=== PATIENT | female | born 1980 | race Asian ===

== ENCOUNTER → 2017-09-14 | Outpatient (CLI) | payer BC ==
[~2017-09-14] MED LIST: ACHYD1T PO; IBP800T PO
--- NOTE | 2017-09-14 11:09 | Diagnostic Imaging Report ---
PROCEDURE: US Thyroid. TECHNIQUE: Multiple real-time grayscale images were obtained of the thyroid in various projections. INDICATION: Followup right thyroid nodule. COMPARISON: 08/14/2016 FINDINGS: The right thyroid lobe is 6.5 x 2 x 2.5 CM. The left lobe is 5.3 x 1.2 x 1.3 CM. There is a 4.9 x 1.9 x 2.9 cm complex lesion, largely cystic with a solid nodule seen. This is measuring 1.5 x 0.7 x 0.8 CM. The solid component appears slightly more confluent on this exam. The left lobe demonstrate tiny cystic lesions up to 4 mm in size of questionable significance. IMPRESSION: Partially cystic mass with a solid nodule seen in the left thyroid lobe with internal solid component. There is minimal overall enlargement compared to the previous exam. Ultrasound-guided biopsy of the solid component is suggested. Report was faxed to office of Dr. Garza by zoila at 11:10 am. Dictated by: Dictated on workstation # [id number]
== END ==
LOC: RAD 09:47
PROVIDERS: ATTEND Otolaryngology Otolaryngology/Facial Plastic Surgery
DX: E04.1 Nontoxic single thyroid nodule (principal)
CPT/HCPCS: 36415; 76536; 84436; 84443

== ENCOUNTER 2018-10-21 11:00 | Outpatient (CLI) | payer BC ==
[~2018-10-21] VITALS: Ht 160 cm; Wt 54.0 kg
[2018-10-21 11:25] VITALS: BP 113/56
[2018-10-21 11:32] LABS: BASOPHILS % (AUTO) 1 % (0-10); EOSINOPHILS # (AUTO) 0.1 10^3/uL (0.0-0.3); EOSINOPHILS % (AUTO) 1 % (0-10); HEMATOCRIT 38 % (35-52); HEMOGLOBIN 12.5 G/DL (11.5-16.0); LYMPHOCYTES # (AUTO) 2.2 X 10^3 (1.0-4.0); LYMPHOCYTES % (AUTO) 39 % (12-44); MEAN CORPUSCULAR HEMOGLOBIN 30 PG (25-34); MEAN CORPUSCULAR HGB CONC 33 G/DL (32-36); MEAN CORPUSCULAR VOLUME 91 FL (80-99); MEAN PLATELET VOLUME 9.6 FL (7.4-10.4); MONOCYTES # (AUTO) 0.5 X 10^3 (0.0-1.0); MONOCYTES % (AUTO) 10 % (0-12); NEUTROPHILS # (AUTO) 2.7 X 10^3 (1.8-7.8); NEUTROPHILS % (AUTO) 50 % (42-75); PLATELET COUNT 255 10^3/uL (130-400); RED BLOOD COUNT 4.18 10^6/uL (4.35-5.85); RED CELL DISTRIBUTION WIDTH 13.1 % (10.0-14.5); WHITE BLOOD COUNT 5.5 10^3/uL (4.3-11.0)
[2018-10-23] MEDS ORDERED: OXYC-199 PO (13:21)
[2018-10-23] MEDS ORDERED: IBUP-1780 PO (13:21)
== END 2018-10-21 11:23 | disposition home or self-care (01) ==
LOC: PREOP 11:00
PROVIDERS: ATTEND Obstetrics & Gynecology
DX: Z01.812 Encounter for preprocedural laboratory examination (principal); Z11.2 Encounter for screening for other bacterial diseases; R19.09 Other intra-abdominal and pelvic swelling, mass and lump; D64.9 Anemia, unspecified
CPT/HCPCS: 36415; 84703; 85025; 87081

== ENCOUNTER 2018-10-23 11:20 | Day surgery (SDC) | payer BC ==
[~2018-10-23] VITALS: Ht 160 cm; Wt 54.0 kg
[2018-10-23] MEDS ORDERED: LACTATED RINGERS 1,000 ML IV PRN (11:23)
[2018-10-23] MEDS ORDERED: ceFAZolin INJECTION 1,000 MG in NS (IVPB) 50 ML IV ONE (11:30)
[2018-10-23 11:38] VITALS: BP 122/92
[2018-10-23] MEDS ORDERED: proPOfol 200 MG/20 ML (DIPRIVAN) VIAL IV ONE (12:06)
[2018-10-23] MEDS ORDERED: SEVOFLURANE (ULTANE) 15 ML INHAL SOLN ONE ×3 (12:06→13:47)
[2018-10-23] MEDS ORDERED: fentaNYL INJECTION 100 MCG/2 ML AMP ONE (12:06)
[2018-10-23] MEDS ORDERED: DEXAMETHASONE 10 MG/ML (DECADRON) 1 ML VIAL ONE (12:06)
[2018-10-23] MEDS ORDERED: LIDOCAINE PF 2% 5 ML (XYLOCAINE) VIAL ONE (12:06)
[2018-10-23] MEDS ORDERED: ONDANSETRON 4 MG/2 ML (SDV) Z0FRAN ONE (12:06)
[2018-10-23] MEDS ORDERED: MIDAZOLAM 2 MG/2 ML (VERSED) VIAL ONE (12:07)
--- NOTE | 2018-10-23 13:18 | Progress Note-Pre Operative ---
Pre-Operative Progress Note H&P Reviewed The H&P was reviewed, patient examined and no changes noted. Date Seen by Provider: Oct 23, 2018 Time Seen by Provider: 13:17 Date H&P Reviewed: Oct 23, 2018 Time H&P Reviewed: 13:18 Pre-Operative Diagnosis: Dysfunctional uterine bleeding/intrauterine mass GINI ANDERSON MD Oct 23, 2018 13:18
[2018-10-23] MEDS ORDERED: D5 LR IV SOLUTION 1,000 ML IV SCH (13:19)
--- NOTE | 2018-10-23 13:19 | Progress Note-Post Operative ---
Post-Operative Progess Note Surgeon (s)/Acid Bleacher (s) Surgeon GINI ANDERSON MD Acid Bleacher: None Pre-Operative Diagnosis Dysfunctional uterine bleeding/intrauterine mass Post-Operative Diagnosis Same with pathology pending Procedure & Operative Findings Date of Procedure 10/23/18 Procedure Performed/Findings Hysteroscopy with directed biopsy and D&C Anesthesia Type GETA Estimated Blood Loss Estimated blood loss (mL): Minimal Specimens/Packing Specimens Removed Endometrial direct and biopsy and endometrial curettings GINI ANDERSON MD Oct 23, 2018 13:19
[2018-10-23] MEDS ORDERED: OXYC-199 PO (13:21)
[2018-10-23] MEDS ORDERED: IBUP-1780 PO (13:21)
--- NOTE | 2018-10-23 13:23 | Discharge Instructions ---
Discharge Instructions Discharge Medications New, Converted or Re-Newed RX: RX on Chart Patient Instructions Patient Instructions: As directed Return to The Hospital For: As directed Activity & Diet Discharge Diet: No Restrictions Activity as Tolerated: No Orders-Post D/C & Referrals Follow Up Appt: Call to make follow up appt. for patient in 2 weeks. Activity: Rest for 24 hours, than as tolerated. Please call in RX to patient pharmacy. Diet: As tolerated-Clear Liquids only if nauseated. May shower or tub bathe as desired. No driving for 24 hours, no alcoholic beverages for 24 hours, and nothing per vagina (no tampons, douching, or intercourse) for 2 weeks. Patient to return to the clinic as soon as possible for: Temperature greater than 101F, Severe Pain, Foul discharge from incision or vagina, Excessive Bleeding (more than a period). GINI ANDERSON MD Oct 23, 2018 13:23
[2018-10-23] MEDS ORDERED: ONDANSETRON 4 MG/2 ML (SDV) Z0FRAN IVP PRN ×2 (13:30→14:15)
[2018-10-23] MEDS ORDERED: KETOROLAC 30 MG/ML VIAL IVP ONE (13:30)
[2018-10-23] MEDS ORDERED: PROMETHAZINE INJ 25 MG/ML (PHENERGAN) AMP IM ONE (13:30)
[2018-10-23] MEDS ORDERED: MEPERIDINE (DEMEROL) INJ 100 MG/ML IM ONE (13:30)
[2018-10-23] MEDS ORDERED: oxyCODONE/APAP 5/325MG (PERCOCET 5) TABLET PO PRN (13:30)
[2018-10-23] MEDS ORDERED: ESTROGENS CONJ IV 25 MG/5 ML (PREMARIN) VIAL IVP ONE (13:30)
[2018-10-23] MEDS ORDERED: KETOROLAC 30 MG/ML VIAL ONE (13:54)
[2018-10-23] MEDS ORDERED: ESTROGENS CONJ IV 25 MG/5 ML (PREMARIN) VIAL ONE (14:06)
[2018-10-23] MEDS ORDERED: WATER (STERILE) FOR INJECTION 10 ML ONE (14:07)
[2018-10-23] MEDS ORDERED: fentaNYL INJECTION 100 MCG/2 ML AMP IVP ONE (14:15)
[2018-10-23] MEDS ORDERED: morphine INJ 10 MG/ML 1ML (SYR OR VIAL) IVP ONE (14:15)
[2018-10-23] MEDS ORDERED: MEPERIDINE (DEMEROL) INJ 50 MG/ML IVP ONE (14:15)
[2018-10-23 14:45] VITALS: BP 121/77
--- NOTE | 2018-10-23 14:57 | OPERATIVE REPORT ---
DATE OF SERVICE: 10/23/2018 SURGEON: Gini Hernandez MD. PREOPERATIVE DIAGNOSES: Dysfunctional uterine bleeding and intrauterine mass. POSTOPERATIVE DIAGNOSES: Dysfunctional uterine bleeding, intrauterine mass, likely intrauterine polyps with pathology pending. OPERATIVE PROCEDURE: Hysteroscopy with directed biopsies and fractional D and C. OPERATIVE DESCRIPTION: With the patient in the supine position under satisfactory general anesthesia, she was repositioned in dorsal lith[facility] and prepped and draped in the usual fashion for vaginal surgery. Weighted speculum placed in posterior fornix of vagina, cervix exposed and grasped anteriorly with single tooth tenaculum. Uterus was sounded to 9.5 cm with uterine sound. Cervix was then serially dilated with Jose A dilators to a #20 Jose A and then a #9 Hegar dilator was the last step in dilation. The hysteroscope was introduced and using LR as a distending medium, the endometrial cavity was examined. There were several small polypoid-appearing lesions emanating from the posterior surface of the uterus. There was one large lesion emanating from the right anterior lateral surface of the interior cavity of the uterus. Both tubal ostia were normal in appearance. The anterior uterine wall polypoid mass was resected by clamping across its base and three bites and then removing the polyp with the last bite and sending that to pathology separately under appropriate label. One of the posterior uterine wall lesions were then biopsied off under direct vision and sent to pathology, labeled appropriately as well. The endometrial cavity was then sharply curettaged in all 4 quadrants to a good uterine cry removing a fairly large amount of endometrial tissue with likely some polypoid fragments contained therein as well. The endometrial cavity was then reexamined with the hysteroscope. There was no bleeding. There was no remaining abnormal pathology in the endometrial cavity as the scope was extracted through the cervix. The cervix was examined and it did appear that there were a number of endocervical polyps. Fractional curettage was then completed by curettage in the endocervical canal first with a box curette and then with a small sharp curette. That tissue was sent to pathology, labeled as endocervical curettage as well. The tenaculum was now removed from the cervix. There was some bleeding from both puncture sites. This was touched with silver nitrate to effect hemostasis. Hemostasis assured and no significant bleeding from the cervical os. The procedure was terminated. Sponge and needle counts were correct on completion of the procedure. Estimated blood loss was minimal. A total of 750 mL of distending medium was used and approximately 650 to 700 of that was recovered. There was some spillage on the floor as well. The patient tolerated the procedure well and was uneventfully awakened from her general anesthesia and transferred to recovery in stable condition with plans for discharge home PAR. Job ID: [id number] DocumentID: [id number] Dictated Date: 10/23/2018 13:57:07 Earthmoving Labourer Date: 10/23/2018 14:56:44 Dictated By: GINI HERNANDEZ MD
--- OUTSIDE RECORDS SUMMARY | 2018-10-23 15:14 | XMS REPORT | Clinical Summary ---
Author Author [facility] Organization [facility] Address Unknown Phone Unavailable Care Team Providers Care Side Laster Tack Name Role Phone No Pcp, Na PCP Unavailable Source Comments Some departments are not documenting in the electronic medical record. If you do not see the information that you expected, contact Release of Information in the Health Information Management department at [phone] for further assistance in locating additional records.[facility] Allergies No Known Allergies Medications End Date Status Medication Sig Dispensed Refills Start Date Active vitamins, multiple tablet Take 1 tablet 0 by mouth daily. Active calcium carbonate/vitamin Take 1 tablet 0 D-3 (OSCAL-500+D) 1250 by mouth mg/200 unit tablet daily. Calcium Carb 1250mg delivers 500mg elemental Ca Active COLLAGEN MISC Use as 0 directed. Active biotin 1 mg cap Take 1 0 capsule by mouth daily. Active Herbal Drugs tab Take by 0 mouth. Mangastene inflammation complex Active loratadine (CLARITIN) 10 Take 1 mg by 0 mg tablet mouth daily as needed. Active fluticasone (FLONASE) 50 Apply 1-2 0 mcg/actuation nasal spray sprays to each nostril as directed daily as needed. Shake bottle gently before using. Active Problems Problem Noted Date Neck tightness 08/08/2018 Thyroid mass 08/08/2018 Encounters Care Team Description Date Type Specialty Sony Puente MD Surgery 08/15/2018 Telephone Otolaryngology Waddell, SMITH Ortega 08/08/2018 Anesthesia Event Sony Puente MD 08/08/2018 PAC Office Anesthesiology Visit Sony Puente MD 08/08/2018 Hospital Radiology Encounter Sony Puente MD Neck tightness; Thyroid mass 08/08/2018 Office Visit Otolaryngology Sony Puente MD 08/08/2018 Hospital Radiology Encounter Sony Puente MD 08/08/2018 Hospital Lab Encounter Sony Puente MD Multiple thyroid nodules (Primary Dx) 08/08/2018 Orders Only Otolaryngology Sony Puente MD Thyroid mass (Primary Dx) 08/08/2018 Prep for Case Otolaryngology Sony Puente MD Navigation Assessment 07/30/2018 Telephone Oncology from Last 3 Months Family History Medical History Relation Name Comments Asthma Sister Relation Name Status Comments Father Mother Alive Sister Alive Social History Date Tobacco Use Types Packs/Day Years Used Never Smoker Smokeless Tobacco: Never Used Alcohol Use Drinks/Week oz/Week Comments No Sex Assigned at Date Recorded Not on file Industry Job Start Date Occupation Not on file Not on file Not on file Travel End Travel History Travel Start No recent travel history available. Last Filed Vital Signs Time Taken Vital Sign Reading 08/08/2018 1:36 PM BALLISTICS EXPERT Blood Pressure 111/72 08/08/2018 1:36 PM BALLISTICS EXPERT Pulse 91 08/08/2018 1:36 PM BALLISTICS EXPERT Temperature 36.6 C (97.9 F) - Respiratory Rate - 08/08/2018 1:36 PM BALLISTICS EXPERT Oxygen Saturation 100% - Inhaled Oxygen - Concentration 08/08/2018 1:36 PM BALLISTICS EXPERT Weight 51.3 kg (113 lb) 08/08/2018 1:36 PM BALLISTICS EXPERT Height 160 cm (5' 3") 08/08/2018 1:36 PM BALLISTICS EXPERT Body Mass Index 20.02 Plan of Treatment Health Maintenance Due Date Last Done Comments PHYSICAL (COMPREHENSIVE) 1985 EXAM HIV SCREENING 1993 DTAP/TDAP VACCINES ( - 1996 Tdap) CERVICAL CANCER SCREENING 2008 BREAST CANCER SCREENING 2018 INFLUENZA VACCINE 05/01/2018 Procedures Comments Procedure Name Priority Date/Time Associated Diagnosis CHEST 2 VIEWS Routine 08/08/2018 Multiple thyroid nodules 1:15 PM BALLISTICS EXPERT US THYROID Routine 08/08/2018 Multiple thyroid nodules 10:28 AM BALLISTICS EXPERT 25-OH VITAMIN D (D2 + D3) Routine 08/08/2018 Multiple thyroid nodules 8:27 AM BALLISTICS EXPERT Pre-procedure lab exam THYROID STIMULATING Routine 08/08/2018 Multiple thyroid nodules HORMONE-TSH 8:27 AM BALLISTICS EXPERT COMPREHENSIVE METABOLIC Routine 08/08/2018 Pre-procedure lab exam PANEL 8:27 AM BALLISTICS EXPERT CBC AND DIFF Routine 08/08/2018 Pre-procedure lab exam 8:27 AM BALLISTICS EXPERT from Last 3 Months Results * CHEST 2 VIEWS (08/08/2018 1:15 PM BALLISTICS EXPERT) Impressions Performed At No acute cardiopulmonary abnormality. [facility] Finalized by Jose Alves M.D. on 08/08/2018 1:28 PM. Dictated by Jose Alves M.D. on 08/08/2018 1:27 PM. Narrative Performed At 2 views of the chest [facility] Clinical history: Thyroid nodules. Findings: Comparison chest film: None available. The heart and pulmonary vasculature are within normal limits. There is mild indentation of the right upper trachea which may be due to the patient's known large right thyroid nodule. There are no consolidating infiltrates, effusions or pneumothoraces identified. Procedure Note Interface, Radiant Results - 08/08/2018 1:31 PM BALLISTICS EXPERT 2 views of the chest Clinical history: Thyroid nodules. Findings: Comparison chest film: None available. The heart and pulmonary vasculature are within normal limits. There is mild indentation of the right upper trachea which may be due to the patient's known large right thyroid nodule. There are no consolidating infiltrates, effusions or pneumothoraces identified. IMPRESSION No acute cardiopulmonary abnormality. Finalized by Jose Alves M.D. on 08/08/2018 1:28 PM. Dictated by Jose Alves M.D. on 08/08/2018 1:27 PM. Performing Organization Address City/State/Zipcode Phone Number [facility] * US THYROID (08/08/2018 10:28 AM BALLISTICS EXPERT) Impressions Performed At 1.Large complex cystic mass in right lobe of thyroid, not significantly [facility] changed from previous studies. This finding has been previously biopsied with benign results. Continued periodic follow-up is recommended, with repeat study in 12/18 months. 2.Small nodule in left lobe of thyroid, most compatible with follicular nodule. 3.Normal sized likely reactive cervical lymph nodes. Finalized by Pham Rosario M.D. on 08/08/2018 12:47 PM. Dictated by Pham Rosario M.D. on 08/08/2018 12:36 PM. Narrative Performed At Thyroid ultrasound. [facility] Clinical Indication: Left thyroid nodules. Technique: Multiple real-time grayscale sonographic images were obtained through the thyroid. Findings: Comparison is to outside study dated September 14, 2017 and other studies dating back to October 30, 2013. The right lobe of the thyroid measures 5.4 x 2.4 x 3.3 cm. There is a large complex cystic mass in the mid right lobe of the thyroid. Layering fluid/ debris is suspected. It measures 3.8 x 2.4 x 3.1 cm. This compares to 4.9 x 1.9 x 2.9 cm in August 2017 and 3.5 x 1.2 x 2.2 cm in 2013. It has apparently been previously biopsied with findings of benign thyroid nodule with cystic degeneration. Hyperechoic soft tissue nodularity with suggestion of blood flow is noted, though spectral doppler was not performed. Elongated, likely reactive lymph nodes are seen in the right superior neck. These measure 2.8 x 0.3 x 1.0 cm and 2.4 x 0.4 x 1.3 cm. The left lobe of the thyroid measures 5.1 x 1.1 x 1.8 cm. Small isoechoic nodule with a hypoechoic rim is visualized measuring 0.4 x 0.2 x 0.3 cm, previously measuring 0.4 x 0.3 x 0.3 cm. Normal sized indeterminate, though likely reactive lymph nodes are seen in the left neck, the largest measuring 0.9 x 0.3 x 0.7 cm. The isthmus measures 0.2 cm in AP diameter. Reactive lymph node in the submental region measures 0.9 x 0.5 x 0.8 cm. Procedure Note Interface, Radiant Results - 08/08/2018 12:50 PM BALLISTICS EXPERT Thyroid ultrasound. Clinical Indication: Left thyroid nodules. Technique: Multiple real-time grayscale sonographic images were obtained through the thyroid. Findings: Comparison is to outside study dated September 14, 2017 and other studies dating back to October 30, 2013. The right lobe of the thyroid measures 5.4 x 2.4 x 3.3 cm. There is a large complex cystic mass in the mid right lobe of the thyroid. Layering fluid/debris is suspected. It measures 3.8 x 2.4 x 3.1 cm. This compares to 4.9 x 1.9 x 2.9 cm in August 2017 and 3.5 x 1.2 x 2.2 cm in 2013. It has apparently been previously biopsied with findings of benign thyroid nodule with cystic degeneration. Hyperechoic soft tissue nodularity with suggestion of blood flow is noted, though spectral doppler was not performed. Elongated, likely reactive lymph nodes are seen in the right superior neck. These measure 2.8 x 0.3 x 1.0 cm and 2.4 x 0.4 x 1.3 cm. The left lobe of the thyroid measures 5.1 x 1.1 x 1.8 cm. Small isoechoic nodule with a hypoechoic rim is visualized measuring 0.4 x 0.2 x 0.3 cm, previously measuring 0.4 x 0.3 x 0.3 cm. Normal sized indeterminate, though likely reactive lymph nodes are seen in the left neck, the largest measuring 0.9 x 0.3 x 0.7 cm. The isthmus measures 0.2 cm in AP diameter. Reactive lymph node in the submental region measures 0.9 x 0.5 x 0.8 cm. IMPRESSION 1. Large complex cystic mass in right lobe of thyroid, not significantly changed from previous studies. This finding has been previously biopsied with benign results. Continued periodic follow-up is recommended, with repeat study in 12/18 months. 2. Small nodule in left lobe of thyroid, most compatible with follicular nodule. 3. Normal sized likely reactive cervical lymph nodes. Finalized by Pham Rosario M.D. on 08/08/2018 12:47 PM. Dictated by Pham Rosario M.D. on 08/08/2018 12:36 PM. Performing Organization Address City/State/Zipcode Phone Number RAD RESULTS * 25-OH VITAMIN D (D2 + D3) (08/08/2018 8:27 AM BALLISTICS EXPERT) Vitamin D(25-OH)Total 57.3 30 - 80 NG/ML [facility] Specimen Blood Performing Organization Address City/[facility]/Zipcode Phone Number [facility] [address] [place] [address] * CBC AND DIFF (08/08/2018 8:27 AM BALLISTICS EXPERT) White Blood Cells 6.2 4.5 - 11.0 K/UL [facility] RBC 4.41 4.0 - 5.0 M/UL [facility] Hemoglobin 13.6 12.0 - 15.0 GM/DL [facility] Hematocrit 41.0 36 - 45 % [facility] MCV 93.0 80 - 100 FL [facility] MCH 30.8 26 - 34 PG [facility] MCHC 33.1 32.0 - 36.0 G/DL [facility] RDW 13.7 11 - 15 % [facility] Platelet Count 273 150 - 400 K/UL [facility] MPV 7.6 7 - 11 FL [facility] Neutrophils 64 41 - 77 % [facility] Lymphocytes 27 24 - 44 % [facility] Monocytes 7 4 - 12 % [facility] Eosinophils 1 0 - 5 % [facility] Basophils 1 0 - 2 % [facility] Absolute Neutrophil Count 3.90 1.8 - 7.0 K/UL [facility] Absolute Lymph Count 1.70 1.0 - 4.8 K/UL [facility] Absolute Monocyte Count 0.40 0 - 0.80 K/UL [facility] Absolute Eosinophil Count 0.10 0 - 0.45 K/UL [facility] Absolute Basophil Count 0.00 0 - 0.20 K/UL [facility] Specimen Blood Performing Organization Address City/[facility]/Zipcode Phone Number [facility] [address] [place] [address] * THYROID STIMULATING HORMONE-TSH (08/08/2018 8:27 AM BALLISTICS EXPERT) TSH 0.730 0.35 - 5.00 MCU/ML [facility] Specimen Blood Performing Organization Address [facility] Phone Number [facility] [address] [place] [address] * COMPREHENSIVE METABOLIC PANEL (08/08/2018 8:27 AM BALLISTICS EXPERT) Sodium 136 (L) 137 - 147 MMOL/L [facility] Potassium 4.3 3.5 - 5.1 MMOL/L [facility] Chloride 103 98 - 110 MMOL/L [facility] Glucose 171 (H) 70 - 100 MG/DL [facility] Blood Urea Nitrogen 13 7 - 25 MG/DL [facility] Creatinine 0.77 0.4 - 1.00 MG/DL [facility] Calcium 9.5 8.5 - 10.6 MG/DL [facility] Total Protein 7.7 6.0 - 8.0 G/DL [facility] Total Bilirubin 0.6 0.3 - 1.2 MG/DL [facility] Albumin 4.3 3.5 - 5.0 G/DL [facility] Alk Phosphatase 55 25 - 110 U/L [facility] AST (SGOT) 18 7 - 40 U/L [facility] CO2 26 21 - 30 MMOL/L [facility] ALT (SGPT) 12 7 - 56 U/L [facility] Anion Gap 7 3 - 12 [facility] eGFR Non >60 >60 mL/min [facility] Comment: The eGFR is not validated for use in drug dosing adjustments.Continue to use estimated creatinine clearance per dosing reference text.Please contact the Clinical Pharmacist for questions. eGFR >60 >60 mL/min [facility] Comment: The eGFR is not validated for use in drug dosing adjustments.Continue to use estimated creatinine clearance per dosing reference text.Please contact the Clinical Pharmacist for questions. Specimen Blood Performing Organization Address City/State/Zipcode Phone Number [facility] [address] [place] [address] from Last 3 Months Insurance Payer Benefit Subscriber ID Type Phone Address Plan / Group [facility] xxxxxxxxxxxx [facility] [address] (Home) [place] [address] Advance Directives Patient has advance care planning documents on file. For more information, please contact: [facility] [address] [place] [address]
--- OUTSIDE RECORDS SUMMARY | 2018-10-23 15:14 | XMS REPORT | Encounter Summary ---
Author Author [facility] Organization [facility] Address Unknown Phone Unavailable Care Team Providers Care Social Service Liaison Name Role Phone No Pcp, Na PCP Unavailable Encounter Details Care Team Description Date Type Department Sony Puente MD [address] [facility] [address] [place] [address] 08/08/2018 Hospital [facility] Radiology [address] [facility] MED OFFICE [address] [place] [address] Social History Date Tobacco Use Types Packs/Day Years Used Never Smoker Smokeless Tobacco: Never Used Alcohol Use Drinks/Week oz/Week Comments No Sex Assigned at Date Recorded Not on file Industry Job Start Date Occupation Not on file Not on file Not on file Travel End Travel History Travel Start No recent travel history available. as of this encounter Medications at Time of Discharge Start Date End Date Medication Sig Dispensed Refills biotin 1 mg cap Take 1 0 capsule by mouth daily. calcium carbonate/vitamin Take 1 tablet 0 D-3 (OSCAL-500+D) 1250 by mouth mg/200 unit tablet daily. Calcium Carb 1250mg delivers 500mg elemental Ca COLLAGEN MISC Use as 0 directed. fluticasone (FLONASE) 50 Apply 1-2 0 mcg/actuation nasal spray sprays to each nostril as directed daily as needed. Shake bottle gently before using. Herbal Drugs tab Take by 0 mouth. Mangastene inflammation complex loratadine (CLARITIN) 10 Take 1 mg by 0 mg tablet mouth daily as needed. vitamins, multiple tablet Take 1 tablet 0 by mouth daily. as of this encounter Plan of Treatment Not on fileas of this encounter Procedures Comments Procedure Name Priority Date/Time Associated Diagnosis CHEST 2 VIEWS Routine 08/08/2018 Multiple thyroid nodules 1:15 PM SENIOR QUALITY CONTROL INSPECTOR in this encounter Results * CHEST 2 VIEWS (08/08/2018 1:15 PM SENIOR QUALITY CONTROL INSPECTOR) Impressions Performed At No acute cardiopulmonary abnormality. [...] Interface, Radiant Results - 08/08/2018 1:31 PM SENIOR QUALITY CONTROL INSPECTOR 2 views of the chest Clinical history: Thyroid nodules. Findings: Comparison chest film: None available. The heart and pulmonary vasculature are within normal limits. There is mild indentation of the right upper trachea which may be due to the patient's known large right thyroid nodule. There are no consolidating infiltrates, effusions or pneumothoraces identified. IMPRESSION No acute cardiopulmonary abnormality. Finalized by Jose lAves M.D. on 08/08/2018 1:28 PM. Dictated by Jose Alves M.D. on 08/08/2018 1:27 PM. Performing Organization Address City/State/Zipcode Phone Number [facility] RES[facility] in this encounter Visit Diagnoses Diagnosis Multiple thyroid nodules Nontoxic multinodular goiter in this encounter
--- OUTSIDE RECORDS SUMMARY | 2018-10-23 15:14 | XMS REPORT | Encounter Summary ---
Author Author [facility] Organization [facility] Address Unknown Phone Unavailable Care Team Providers Care Forging Press Lever Tender Name Role Phone No Pcp, Na PCP Unavailable Encounter Details Care Team Description Date Type Department Sony Puente MD [address] [facility] [address] [place] [address] Multiple thyroid nodules (Primary Dx) 08/08/2018 Orders Only [facility] Phys[facility] - [facility] [address] [place] [address] Social History Date Tobacco Use Types Packs/Day Years Used Never Smoker Smokeless Tobacco: Never Used Alcohol Use Drinks/Week oz/Week Comments No Sex Assigned at Date Recorded Not on file Industry Job Start Date Occupation Not on file Not on file Not on file Travel End Travel History Travel Start No recent travel history available. as of this encounter Plan of Treatment Not on fileas of this encounter Results * CHEST 2 VIEWS (08/08/2018 1:15 PM BOX HINGE AND LOCK ATTACHER) Impressions Performed At No acute cardiopulmonary abnormality. [...] Interface, Radiant Results - 08/08/2018 1:31 PM BOX HINGE AND LOCK ATTACHER 2 views of the chest Clinical history: [...] encounter Visit Diagnoses Diagnosis Multiple thyroid nodules - Primary Nontoxic multinodular goiter in this encounter
--- OUTSIDE RECORDS SUMMARY | 2018-10-23 15:14 | XMS REPORT | Encounter Summary ---
Author Author [facility] Organization [facility] Address Unknown Phone Unavailable Care Team Providers Care Manager Outreach Name Role Phone No Pcp, Na PCP Unavailable Encounter Details Care Team Description Date Type Department Olvin Reina MD [address] [place] [address] 09/18/2018 Anesthesia [place] Operating Room Event [address] [place] [address] Anesthesia Record Responsible Anesthesiologist Anesthesia Start Time Anesthesia Stop Time Procedure Name THYROID LOBECTOMY TOTAL UNILATERAL (Right ) No events on file. Meds * No agents on file. * No blood administrations on file. No LDAs on file. in this encounter Social History Date Tobacco Use Types Packs/Day [...] Treatment Not on fileas of this encounter Visit Diagnoses Not on filein this encounter
--- OUTSIDE RECORDS SUMMARY | 2018-10-23 15:14 | XMS REPORT | Encounter Summary ---
Author Author [facility] Organization [facility] Address Unknown Phone Unavailable Care Team Providers Care Grounds Maintenance Worker Name Role Phone No Pcp, Na PCP Unavailable Encounter Details Care Team Description Date Type Department Sony Puente MD [address] [facility] [address] [place] [address] Thyroid mass (Primary Dx) 08/08/2018 Prep for Case [facility] - ENT Ortho and [facility] Level 3C [address] [place] [address] Social History Date Tobacco Use [...] on fileas of this encounter Visit Diagnoses Diagnosis Thyroid mass - Primary Unspecified disorder of thyroid in this encounter
--- OUTSIDE RECORDS SUMMARY | 2018-10-23 15:14 | XMS REPORT | Encounter Summary ---
Author Author [facility] Organization [facility] Address Unknown Phone Unavailable Care Team Providers Care Supervisor Nutritional Yeast Name Role Phone No Pcp, Na PCP Unavailable Encounter Details Care Team Description Date Type Department Sony Puente MD [address] [facility] [address] [place] [address] 08/08/2018 PAC Office Preoperative Assessment Visit Clinic [address] [place] [address] Anesthesia Record Responsible Anesthesiologist Anesthesia Start Time [...] travel history available. as of this encounter Last Filed Vital Signs Time Taken Vital Sign Reading 08/08/2018 1:36 PM EMBEDDED SOFTWARE ARCHITECT Blood Pressure 111/72 08/08/2018 1:36 PM EMBEDDED SOFTWARE ARCHITECT Pulse 91 08/08/2018 1:36 PM EMBEDDED SOFTWARE ARCHITECT Temperature 36.6 C (97.9 F) - Respiratory Rate - 08/08/2018 1:36 PM EMBEDDED SOFTWARE ARCHITECT Oxygen Saturation 100% - Inhaled Oxygen - Concentration 08/08/2018 1:36 PM EMBEDDED SOFTWARE ARCHITECT Weight 51.3 kg (113 lb) 08/08/2018 1:36 PM EMBEDDED SOFTWARE ARCHITECT Height 160 cm (5' 3") 08/08/2018 1:36 PM EMBEDDED SOFTWARE ARCHITECT Body Mass Index 20.02 in this encounter Patient Instructions * Pre-Anesthesia Patient Instructions* Emilia Persaud RN - 08/08/2018 1:55 PM EMBEDDED SOFTWARE ARCHITECT GENERAL INFORMATION Before you come to the hospital Make arrangements for a responsible adult to drive you home and stay with you for 24 hours following surgery. Bath/Shower Instructions Take a bath or shower using the special soap given to you in PAC. Use half the bottle the night before, and the other half the morning of your procedure. Use clean towels with each bath or shower. Put on clean clothes after bath or shower. Avoid using lotion and oils. If you are having surgery above the waist, wear a shirt that fastens up the front. Sleep on clean sheets if bath or shower is done the night before procedure. Leave money, credit cards, jewelry, and any other valuables at home. [facility] is not responsible for the loss or breakage of personal items. Remove nail setswana, makeup and all jewelry (including piercings) before coming to the hospital. The morning of your procedure: brush your teeth and tongue do not smoke do not shave the area where you will have surgery What to bring to the hospital ID/ Insurance Card Rope Twisting Machine Operator card Official documents for legal guardianship Copy of your Living Will, Advanced Directives, and/or Durable Power of Cooker Chip Small bag with a few personal belongings Cases for glasses/hearing aids/contact lens (bring solutions for contacts) Dress in clean, loose, comfortable clothing Eating or drinking before surgery Do not eat or drink anything after 11:00 p.m. the day before your procedure ( including gum, mints, candy, or chewing tobacco) OR follow the specific instructions you were given by your Surgeon. You may have WATER ONLY up to 2 hours before arriving at the hospital. Other instructions: Other instructionsNotify your surgeon if: there is a possibility that you are you become ill with a cough, fever, sore throat, nausea, vomiting or flu- like symptoms you have any open wounds/sores that are red, painful, draining, or are new since you last saw the doctor you need to cancel your procedure You will receive a call with your surgery arrival time from between 2:30pm and 4:30pm the last business day before your procedure. If you do not receive a call, please call [phone] before 4:30pm or [phone] after 4:30pm. [facility]: if you need to cancel your procedure if you are going to be late Arrival at the hospital [facility] [address] [place] [address] ? Park in the P5 parking garage located at [address] [place] [address]. ? Die Repairer Trimmer Dies parking is available in front of [facility] between the hours of 7:00 am and 4:00 pm Sunday through Sunday. ? If parking in the P5 garage, take the east elevators in the parking garage to the second level and walk to the entrance of the [facility]. ? Enter through the 1st floor main entrance and check in with Information Desk. ? If you are a woman between the ages of 10 and 55, and have not had a hysterectomy, you will be asked for a urine sample prior to surgery. Please do not urinate before arriving in the Surgery Waiting Room. Once there, check in and let the attendant know if you need to provide a sample. DDED SOFTWARE ARCHITECT * Pre-Anesthesia Medication Instructions* Mel Malave, PHARMD - 08/08/2018 1:52 PM EMBEDDED SOFTWARE ARCHITECT YOUR MEDICATIONS: biotin 1 mg cap Take 1 capsule by mouth daily. calcium carbonate/vitamin D-3 (OSCAL-500+D) 1250 mg/200 unit tablet Take 1 tablet by mouth daily. Calcium Carb 1250mg delivers 500mg elemental Ca COLLAGEN MISC Use as directed. fluticasone (FLONASE) 50 mcg/actuation nasal spray Apply 1-2 sprays to each nostril as directed daily as needed. Shake bottle gently before using. Herbal Drugs tab Take by mouth. Mangastene inflammation complex loratadine (CLARITIN) 10 mg tablet Take 1 mg by mouth daily as needed. vitamins, multiple tablet Take 1 tablet by mouth daily. YOUR MEDICATION INSTRUCTIONS FOR SURGERY: Before surgery Stop the following vitamins, herbals, and natural supplements 14 days before surgery: Biotin Collagen Mangastene Multivitamin Stop the following medications 7 days before surgery: Anti-inflammatory medications such as ibuprofen (Advil, Motrin) and naproxen (Aleve) You may use acetaminophen (Tylenol) Morning of surgery On the morning of surgery, do NOT take these medications: Remaining vitamins/supplements Calcium plus D Ointments/creams/lotions On the morning of surgery, take ONLY these medications with a sip (1-2 ounces) of water: IF needed: claritin May use flonase as usual Other information Before surgery, please contact the clinic pharmacist with any medicine updates or questions. E-mail: [email or web address] Before going home from the hospital, please ask your doctor when you should re- start your medicines that were stopped before surgery. DDED SOFTWARE ARCHITECT in this encounter Plan of Treatment Not on fileas of this encounter Visit Diagnoses Not on filein this encounter
--- OUTSIDE RECORDS SUMMARY | 2018-10-23 15:14 | XMS REPORT | Encounter Summary ---
Author Author [facility] Organization [facility] Address Unknown Phone Unavailable Care Team Providers Care Appeals Officer Name Role Phone No Pcp, Na PCP Unavailable Reason for Visit * Reason Comments Surgery Encounter Details Care Team Description Date Type Department Sony Puente MD [address] [facility] [address] [place] [address] Surgery 08/15/2018 Telephone [facility] Physicians - ENT Ortho and Medical [facility] Level 3C [address] [place] [address] Social History Date Tobacco Use Types Packs/Day Years Used Never Smoker Smokeless Tobacco: Never Used Alcohol Use Drinks/Week oz/Week Comments No Sex Assigned at Date Recorded Not on file Industry Job Start Date Occupation Not on file Not on file Not on file Travel End Travel History Travel Start No recent travel history available. as of this encounter Miscellaneous Notes * Telephone Encounter - Alicia Tomlin RN - 08/15/2018 8:19 AM PERMACULTURE DESIGNER LVM requesting patient call RN back regarding the option to move surgery to . Will follow-up with patient. ACULTURE DESIGNER in this encounter Plan of Treatment Not on fileas of this encounter Visit Diagnoses Not on filein this encounter
[2018-10-23 15:15] VITALS: BP 119/77
--- OUTSIDE RECORDS SUMMARY | 2018-10-23 15:15 | XMS REPORT | Encounter Summary ---
Author Author [facility] Organization [facility] Address Unknown Phone Unavailable Care Team Providers Care Manager Maritime Name Role Phone PCP Unavailable Reason for Visit * Reason Comments Navigation Assessment Encounter Details Care Team Description Date Type Department Sony Puente MD [address] [facility] [address] [place] [address] Navigation Assessment 07/30/2018 Telephone [facility] [address] [address] Social History Date Tobacco Use Types Packs/Day Years Used Never Assessed Sex Assigned at Date Recorded Not on file Industry Job Start Date Occupation Not on file Not on file Not on file Travel End Travel History Travel Start No recent travel history available. as of this encounter Miscellaneous Notes * Telephone Encounter - Citlalli Shepherd RN - 07/30/2018 4:47 PM CDT Navigation Intake Assessment Document Patient Name: Connie Stapleton : 1980 Insurance: [facility] of Future Appointments Date Time Provider Department Center 08/08/2018 10:00 AM SONO ROOM 2-MOB TAM [facility] Radiolog 08/08/2018 11:00 AM Sony Puente MD ENT [facility] ENT 08/08/2018 2:00 PM PAC ROOM 3 PRE None Diagnosis & Reason for Visit: Thyroid nodules Physician Info: Referring Physician: Dr Branden Garza Contact Name & Number: Yudi [phone] Location of Films: IN HOUSE and PACS Location of Pathology: No recent biopsy. History of Present Illness: 38 year old female with 6 year history of thyroid nodules/cysts. The cyst has been drained x 2, each time recurring. Pt does c/o of some moderate compression symptoms, including a globus sensation. Pt denies difficulty swallowing. PE per Dr Garza notates large nodule involving the entire right side that is easily noticeable. No adenopathy palpated. 10/30/13 Thyroid Uptake scan: IMPRESSION: 1. Mild hyperthyroidism. 2. Cold nodule in the inferior aspect of the right lobe, could be reltaed to the large cystic component. 11/27/13 FNA Right lobe thyroid: Consistent with benign thyroid nodule with cystic degeneration. 09/14/17 TSH: 0.58 Thyroxine T4 9.9 09/14/17 US thyroid (OSH): IMPRESSION: Partially cystic mass with a solid nodule seen in the left thyroid lobe with internal solid component. Cyst measures: 4.9 x 1.9 x 2.9 cm Prior Treatment (XRT, Surgery, Chemotherapy): Drained thyroid cyst x 2 NEEDS Assessment: Genetic Counseling: Not discussed. Nutrition: No needs identified Social Work/Financial: No need identified Spiritual & Emotional: No needs identified. Pt expresses eagerness to discuss surgery options. Physical: No needs identified Communication: No needs identified Oncofertility - Females age 40 and under; Males age 50 and under : Not applicable in this encounter Plan of Treatment Not on fileas of this encounter Visit Diagnoses Not on filein this encounter
--- OUTSIDE RECORDS SUMMARY | 2018-10-23 15:15 | XMS REPORT | Encounter Summary ---
Author Author [facility] Organization [facility] Address Unknown Phone Unavailable Care Team Providers Care Acoustic Intelligence Specialist Name Role Phone No Pcp, Na PCP Unavailable Encounter Details Care Team Description Date Type Department Sony Puente MD [address] [facility] [address] [place] [address] 08/08/2018 Hospital [facility] Radiology [address] [facility] MED OFFICE [address]G [address] [place] [address] Social History Date Tobacco Use [...] Comments Procedure Name Priority Date/Time Associated Diagnosis US THYROID Routine 08/08/2018 Multiple thyroid nodules 10:28 AM SHOEMAKER CUSTOM in this encounter Results * US THYROID (08/08/2018 10:28 AM SHOEMAKER CUSTOM) Impressions Performed At 1.Large complex cystic mass [...] Interface, Radiant Results - 08/08/2018 12:50 PM SHOEMAKER CUSTOM Thyroid ultrasound. Clinical Indication: Left thyroid nodules. [...] 3.5 x 1.2 x 2.2 cm in 2014. It has apparently been previously biopsied with [...]
--- OUTSIDE RECORDS SUMMARY | 2018-10-23 15:15 | XMS REPORT | Continuity of Care Document ---
Author Author [facility] Organization [facility] Address Unknown Phone Unavailable Allergies Active Description Code Type Severity Reaction Onset Reported/Identified Relationship to Patient Clinical Status Yes No Known Drug Allergies [id number] Drug Allergy Unknown N/A 06/07/2009 Medications There is no data. Problems Date Dx Coded Attending Type Code Diagnosis Diagnosed By 06/09/2009 Ot 648.81 06/09/2009 Ot 651.31 06/09/2009 Ot 659.71 06/09/2009 Ot 663.31 06/09/2009 Ot 665.41 06/09/2009 Ot 669.81 06/09/2009 Ot V27.3 04/12/2012 Ot 648.81 ABN GLUCOSE BRENDAN-DELIV 04/12/2012 Ot 657.01 POLYHYDRAMNIOS,DEL W OR W/O MENTN ANTEPA 04/12/2012 Ot 659.71 ABN DEL FET HT RT/RHYTHM,W OR W/O MENTIO 04/12/2012 Ot V27.0 DELIVER- SINGLE LIVEBORN 11/26/2014 GINI ANDERSON MD Ot 611.72 08/03/2015 MADDY DYE MD Ot E04.1 08/12/2015 MADDY DYE MD Ot E04.1 08/14/2016 GINI ANDERSON MD Ot 240.9 GOITER NOS 08/14/2016 GINI ANDERSON MD Ot V76.12 OTH SCREEN MAMMO-MALIGN NEOPLASM OF SAVANNA 08/14/2016 Ot 241.0 NONTOX UNINODULAR GOITER 08/14/2016 Ot 389.15 SENSORINEURAL HEARING LOSS, UNILATERAL 08/14/2016 MADDY DYE MD Ot 241.0 NONTOX UNINODULAR GOITER 08/14/2016 GINI ANDERSON MD Ot 611.72 LUMP OR MASS IN BREAST 08/14/2016 MADDY DYE MD Ot E04.1 NONTOXIC SINGLE THYROID NODULE 08/15/2016 GUILLERMINA MERINO APRN Ot E04.1 NONTOXIC SINGLE THYROID NODULE 08/15/2016 GUILLERMINA MERINO APRN Ot E04.1 NONTOXIC SINGLE THYROID NODULE 08/28/2016 GUILLERMINA MERINO APRN Ot E04.1 NONTOXIC SINGLE THYROID NODULE 09/27/2017 HARDIK ELIAS, MADDY Bazzi Ot E04.1 NONTOXIC SINGLE THYROID NODULE Procedures Code Description Performed By Performed On 72.1 04/11/2012 73.4 04/11/2012 Results Test Result Range THYROID STIMULATING HORMONE - 08/14/16 10:35 THYROID STIMULATING HORMONE 0.59 u[iU]/mL 0.35-4.94 Serum or plasma thyroxine (T4) free measurement (mass/volume) - 08/14/16 10:35 Serum or plasma thyroxine (T4) free measurement (mass/volume) 1.18 ng/dL 0.70-1.48 THYROID STIMULATING HORMONE - 09/14/17 10:29 THYROID STIMULATING HORMONE 0.58 u[iU]/mL 0.35-4.94 Thyroxine (T4) measurement - 09/14/17 10:29 T4 (thyroxine) 9.9 % 5.5-12.0 Complete blood count (CBC) with automated white blood cell (WBC) differential - 10/21/18 11:20 Blood leukocytes automated count (number/volume) 5.5 10*3/uL 4.3-11.0 Blood erythrocytes automated count (number/volume) 4.18 10*6/uL 4.35-5.85 Venous blood hemoglobin measurement (mass/volume) 12.5 g/dL 11.5-16.0 Blood hematocrit (volume fraction) 38 % 35-52 Automated erythrocyte mean corpuscular volume 91 [foz_us] 80-99 Automated erythrocyte mean corpuscular hemoglobin (mass per erythrocyte) 30 pg 25-34 Automated erythrocyte mean corpuscular hemoglobin concentration measurement ( mass/volume) 33 g/dL 32-36 Automated erythrocyte distribution width ratio 13.1 % 10.0-14.5 Automated blood platelet count (count/volume) 255 10*3/uL 130-400 Automated blood platelet mean volume measurement 9.6 [foz_us] 7.4-10.4 Automated blood neutrophils/100 leukocytes 50 % 42-75 Automated blood lymphocytes/100 leukocytes 39 % 12-44 Blood monocytes/100 leukocytes 10 % 0-12 Automated blood eosinophils/100 leukocytes 1 % 0-10 Automated blood basophils/100 leukocytes 1 % 0-10 Blood neutrophils automated count (number/volume) 2.7 10*3 1.8-7.8 Blood lymphocytes automated count (number/volume) 2.2 10*3 1.0-4.0 Blood monocytes automated count (number/volume) 0.5 10*3 0.0-1.0 Automated eosinophil count 0.1 10*3/uL 0.0-0.3 Automated blood basophil count (count/volume) 0.0 10*3/uL 0.0-0.1 Urine beta human chorionic gonadotropin (hCG) measurement - 10/21/18 11:20 Urine beta human chorionic gonadotropin (hCG) measurement NEGATIVE NEGATIVE Encounters ACCT No. Visit Date/Time Discharge Status Pt. Type Provider Facility Loc./Unit Complaint [id number] 10/16/2018 12:00:00 10/16/2018 23:59:59 CLS Preadmit GINI ANDERSON MD [facility] RAD ROUTINE [id number] 09/14/2017 09:47:00 09/14/2017 23:59:59 CLS Outpatient MADDY DYE MD [facility] RAD LARGE RIGHT THYROID NODULE [id number] 08/14/2016 10:11:00 08/14/2016 23:59:59 CLS Outpatient GUILLERMINA MERINO APRN [facility] RAD THYROID CYST RT THYROID NODULE [id number] 07/30/2015 10:38:00 07/30/2015 23:59:59 CLS Outpatient MADDY DYE MD [facility] RAD THYROID NODULES [id number] 11/09/2014 14:03:00 11/09/2014 23:59:59 CLS Outpatient GINI ANDERSON MD [facility] RAD LEFT BREAST 1 1/2 CM NODULE 12 OCLOCK POSITION [id number] 06/16/2014 14:53:00 06/16/2014 23:59:59 CLS Outpatient MADDY DYE MD [facility] RAD RT THYROID NODULE [id number] 10/30/2013 10:48:00 10/30/2013 23:59:59 CLS Outpatient GINI ANDERSON MD [facility] RAD BASELINE,GOITER RT SIDE [id number] 10/23/2018 13:00:00 [facility]EN [facility]read[facility] [id number] 10/21/2018 11:33:00 Document Registration [id number] 11/27/2013 10:22:00 Document Registration [id number] 04/11/2012 07:43:00 Document Registration [id number] 06/07/2009 07:33:00 Document Registration [email or web address] 11/09/2014 14:03:38 ACT Document Registration
--- OUTSIDE RECORDS SUMMARY | 2018-10-23 15:15 | XMS REPORT | Encounter Summary ---
Author Author [facility] Organization [facility] Address Unknown Phone Unavailable Care Team Providers Care Sfdc Solution Architect Name Role Phone No Pcp, Na PCP Unavailable Encounter Details Care Team Description Date Type Department Sony Puente MD [address] [facility] [address] [place] [address] 08/08/2018 Hospital Clinlab Encounter [facility] [address] fl [address] [place] [address] Social History Date Tobacco Use Types Packs/Day [...] Comments Procedure Name Priority Date/Time Associated Diagnosis 25-OH VITAMIN D (D2 + D3) Routine 08/08/2018 Multiple thyroid nodules 8:27 AM RETURN CHECKER Pre-procedure lab exam CBC AND DIFF Routine 08/08/2018 Pre-procedure lab exam 8:27 AM RETURN CHECKER THYROID STIMULATING Routine 08/08/2018 Multiple thyroid nodules HORMONE-TSH 8:27 AM RETURN CHECKER COMPREHENSIVE METABOLIC Routine 08/08/2018 Pre-procedure lab exam PANEL 8:27 AM RETURN CHECKER in this encounter Results * 25-OH VITAMIN D (D2 + D3) (08/08/2018 8:27 AM RETURN CHECKER) Vitamin D(25-OH)Total 57.3 30 - 80 NG/ML [facility] Specimen Blood Performing Organization Address City/State/Zipcode Phone Number [facility] [address] [place] [address] * THYROID STIMULATING HORMONE-TSH (08/08/2018 8:27 AM RETURN CHECKER) TSH 0.730 0.35 - 5.00 MCU/ML [facility] Specimen Blood Performing Organization Address [facility] Phone Number [facility] [address] [place] [address] * COMPREHENSIVE METABOLIC PANEL (08/08/2018 8:27 AM RETURN CHECKER) Sodium 136 (L) 137 - 147 MMOL/L [...] for questions. Specimen Blood Performing Organization Address City/[facility]/Zipcode Phone Number MAIN LAB [address] [place] [address] * CBC AND DIFF (08/08/2018 8:27 AM RETURN CHECKER) White Blood Cells 6.2 4.5 - 11.0 [...] MAIN LAB Specimen Blood Performing Organization Address City/State/Zipcode Phone Number [facility] [address] [place] [address] in this encounter Visit Diagnoses Diagnosis Pre-procedure lab exam Pre-procedural laboratory examination Multiple thyroid nodules Nontoxic multinodular goiter in this encounter
--- OUTSIDE RECORDS SUMMARY | 2018-10-23 15:15 | XMS REPORT | Encounter Summary ---
Author Author [facility] Organization [facility] Address Unknown Phone Unavailable Care Team Providers Care Territory Account Executive Name Role Phone No Pcp, Na PCP Unavailable Reason for Visit * Reason Comments Thyroid Problem * Consult, Test & Treat (Routine) Referred By Contact Referred To Contact Status Reason Specialty Diagnoses / Procedures Branden Garza MD [address] [address] [place] [address] [place], [place] [address] [place] [address] No Auth Needed Otolaryngology Diagnoses NEW, thy cyst, cwa P rocedures NEW PATIENT Encounter Details Care Team Description Date Type Department Sony Puente MD [address] [place], [place] [id number] [place] [address] Neck tightness; Thyroid mass 08/08/2018 Office Visit [facility] 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 Your thyroid is one of the endocrine glands which make hormones to regulate physiological functions in your body. The thyroid gland manufactures thyroid hormone, which regulates the rate at which your body carries on its necessary functions. Other endocrine glands are: the pituitary, the adrenal glands, the parathyroid glands, the testes and the ovaries. The thyroid gland is located in the middle of the lower neck, below the larynx ( voice box) and just above your clavicles (collar-bone). It is shaped like a bowtie, having two halves (lobes): a right lobe and a left lobe joined by an isthmus: you can rarely feel a normal thyroid gland. When is a thyroid gland abnormal? Diseases of the thyroid gland are very common, affecting millions of Americans. The most common diseases are an over or under-active gland. These conditions are called hyperthyroidism (Grave's disease) and hypothyroidism. Sometimes the thyroid gland can become enlarged from overactivity (as in Grave' s disease) or from underactivity (as in hypothyroidism). An enlarged thyroid gland is often called a "goiter." Patients may develop "lumps" or "masses" in their thyroid glands. These masses can either be benign or malignant. They may appear gradually or very rapidly. Patients who had radiation to the head or neck as children for acne, adenoids or other reasons are more prone to develop thyroid malignancy. All thyroid "lumps" (nodules) should generate suspicion and a prompt visit to the doctor. How does your doctor make the diagnosis? The diagnosis of a thyroid mass is made by taking a medical history and examining the neck. Your doctor may have you lift up your chin, extending your neck to make the thyroid gland more prominent. He/she may also ask you to swallow. This helps to distinguish a thyroid mass from other lumps and bumps in the neck. Other tests that your doctor may order include: 1. Fine needle aspiration biopsy 2. A thyroid scan 3. An ultrasound exam 4. A CT scan 5. A chest X-ray 6. Blood tests of thyroid function Fine needle aspiration After diagnosing a thyroid "lump," your doctor may recommend a fine or "skinny " needle aspiration of the lump. This is a safe, relatively painless procedure. A fine needle is passed into the lump in the thyroid, and samples of the tissues are taken. Most patients require several passes with the needle. There is little pain afterwards and very few complications from the procedure. If you have a tendency to bleed excessively, this procedure may not be appropriate. This test gives the doctor more information on the nature of the "lump" in your thyroid gland. The results are read by a doctor called a cytopathologist. This report will help your doctor decide upon the proper treatment for this thyroid mass. Treatment of your thyroid "lump" Once a diagnosis has been made, a treatment plan will be proposed by your doctor based on his examination and your test results. Most thyroid "lumps" are benign. Many can be watched and sometimes re-biopsy is necessary. If the "lump" continues to grow, most doctors would recommend removal of the thyroid "lump". If the fine needle aspiration is atypical or suggestive of a malignancy, then thyroid surgery is required. What is thyroid surgery? Thyroid surgery is an operation to remove part or all of the thyroid gland. It is performed in the hospital, and general anesthesia is usually required. Usually the operation removes the lobe of the thyroid gland containing the "lump " and possibly the isthmus. A frozen section (an immediate pathological reading ) may or may not be used to determine if the rest of the thyroid gland should be removed. Sometimes, based on the result of the frozen section, the surgeon may decide to stop and remove no more thyroid tissue, or proceed to remove the entire thyroid gland, and/or other tissue in the neck, including lymph nodes in the neck. This is a decision usually made in the operating room by the surgeon based on findings at the time of surgery. These options will be discussed by your surgeon with you preoperatively. Most patients are discharged the day after surgery is performed. Complications after thyroid surgery are rare. They include bleeding, a hoarse voice (weakness of the vocal cord), difficulty swallowing/speaking/singing and breathing, numbness of the skin on the neck, and low blood calcium. Most complications go away after a few weeks. Patients who have all of the thyroid gland removed have a higher risk of low blood calcium post-operatively. Patients who have thyroid surgery may be required to take thyroid medication to replace thyroid hormones after surgery. Some patients may need to take calcium and vitamin D replacement if their blood calcium is low. This will depend on how much thyroid gland remains, and what was found during surgery. If you have any questions about thyroid surgery, ask your doctor and he/she will answer them in detail. Your planned surgery is: Endoscopic evaluation of your throat, removal of part of your thyroid gland, possible removal of your whole thyroid gland, and possible lymph node dissection The major risks of your planned surgery include but are not limited to: pain, bleeding, infection, heart attack, stroke, , dental injury, arytenoid dislocation, recurrence of disease or symptoms, need for more surgery or other therapy, cosmetic changes, chyle fluid leak, pneumothorax, hypoparathyroidism ( need for calcium & vitamin D supplementation), vocal cord paralysis, troubles speaking, swallowing, singing and breathing, hypothyroidism/need for synthroid hormone supplementation and vocal cord injury/irritation/granuloma from endotracheal breathing tube. More extensive surgery may be needed if the pathology warrants, including more extensive thyroidectomy and/or removal of lymph nodes. It may be necessary during your surgery for more extensive or other surgical procedures to be done to effectively treat your problem or unexpected complications. We have tried to explain all the possibilities, but if there is a necessary major change during your surgery, we will discuss it with your family and decide the best course of treatment on your behalf. There are always alternatives to your proposed surgery. This includes no surgery, further testing or observation, medicines or possibly radiation therapy or chemotherapy. There are risks and merits for each proposed treatment that we balance in making a recommendation to you and helping you make a decision on your treatment. If you have further questions during this process, please ask! There are many resources on the internet about your disease and its treatment. Some are more reliable than others. We suggest the following web sites as a start: 1. National Cancer Instittue - http://www.cancer.gov/ 2. National Comprehensive Cancer Network - http://www.nccn.org/ 3. [place] Academy [employer] Otolaryngology-Head and Neck Surgery - http:// www.entnet.org 4. [place] Head [employer] Neck Society - http://www.ahns.info 5. [place] Thyroid Association (www.thyroid.org/) In preparation for your upcoming surgery: 1. Your surgery date will be confirmed by a call from our office, usually from Dr. Cheema nurse. Please confirm with the caller that this date is acceptable to you. If your surgery is scheduled at [facility] ([address] [place] [address]): You will receive a call from a Preoperative Surgery Coordinator again confirming the date and time of your upcoming surgery. You will usually be contacted between 2:30 and 4:00pm on the last business day before their procedure. You may also call the Preoperative Assessment Clinic to confirm your arrival time if you do not hear within this time frame. Before 4:30 pm, please call [phone]. The coordinator will tell you when to be at the hospital. Usually this is done the day before surgery. If you have not received a call by noon the day prior to your surgery, please call Dr. Puente's nurse at . Park in the parking garage off of [facility]. Please enter the [facility] through the 1st floor main entrance and check in with admitting on 1st floor. (If you are pre-registered you will go directly to 3rd floor to surgery). If you come to the Hospital prior to Surgery for a Pre-Anesthesia Clinic visit, they will/may pre-register you at that time. Pre-Anesthesia can be reached at # [phone]. You will then be escorted by staff up to Operating Room on the third floor. Family can wait on 1st level in common areas except during certain points in the visit when they may accompany you. They can enjoy the amenities on this floor including the [employer] as well as Wifi access. Please try to be at the hospital before the specified time as sometimes cases can move ahead of schedule. You will be asked to arrive well before your scheduled operation start time due to the extensive preparations that are required to get you ready for your surgery. Sometimes operations take longer than expected or sometimes emergencies arise in the hospital that take precedence. Your patience and flexibility in waiting for your turn on the day of your surgery is appreciated. Our operating room nurse liaisons will attempt to keep you apprised of the progress that is being made towards your surgery. Please bring a book, sherita and/or ipad. 2. You may have been asked to obtain medical clearance for a general anesthetic from your Primary Care Provider or the Cardiology clinic, Hospitalist clinic, Pulmonary clinic and/or Pre-Anesthesia Testing Clinic. These are important appointments to complete to make sure that you are ready for your surgery. These visits also require some testing that may be on the same day or on a different day. The domestic travel consultant cannot comment on your ability to undergo the surgery until the test results are available. Written documentation clearing you for your surgery is needed prior to proceeding to surgery. 3. If you have any changes in your health prior to your scheduled surgery, please inform Dr. Cheema nurse as soon as possible. This includes changes in medication, injuries, chest pain, shortness of breath, bleeding, or other surgeries or illnesses. 4. Certain medications and supplements can cause bleeding or drug interactions during the surgery. a. If approved by your primary doctor or travel coordinator, please hold all aspirin, non-steroidal anti-inflammatory drugs (i.e., Aleve, Motrin, Advil, Mobic, ibuprofen), certain other pain medicines (i.e., Celebrex), fish oil, and vitamin E for at least 2 weeks prior to your surgery. If you are told not to stop these medicines prior to surgery, then please immediately inform Dr. Puente s office so that replacements or adjustments can be made to the surgical arrangements. b. Please hold any plavix, other anti-platelet blood thinners, Pradaxa, Eliquis , Lovenox/Heparin and/or Coumadin (warfarin) as instructed by your primary doctor, travel coordinator, vascular specialist and/or Dr. Puente. In certain patients, Coumadin and Pradaxa is replaced by short-acting shots (Lovenox) prior to surgery to make sure your blood remains thin up to the surgery date. You will be instructed when to stop the blood-thinning shots, but usually the last dose is taken the day before surgery. The doctors will reinitiate your blood thinning agents after surgery when it is medically appropriate and safe. Generally, by the time you go home, you should be taking your regular medicines. c. Some high blood pressure medicines should be taken and some held prior to surgery (i.e., JAYLEEN inhibitors like Lisinopril). Some should be taken up to surgery. Please ask and get the proper instructions for each one of these medicines well in advance of your surgery from your primary doctor or your anesthesiologist. If you are evaluated in the pre-anesthesia testing clinic, they will also give you specific instructions regarding your medicines. d. Some diabetics take a sugar-lowering medicine, metformin (Glucophage). This medicine should not be taken the morning of surgery to avoid interaction with the anesthetic agents. You will need to control your sugar level using alternative means during this 1 day interval. Other agents such as herbal supplements and naturopathic medicines can also interact with the general anesthetic agents or cause bleeding (i.e., ginko biloba, St, Hill wort, garlic). These will need to be stopped at least 2 weeks prior to the surgery. They should also be discontinued during your recovery until approved by Dr. Puente or his team. e. Some patients are on biologic agents or immunosuppressive medications that need to be held prior to surgery, depending on the type of surgery. These include some medications for auto-immune diseases (i.e., rheumatoid arthritis), inflammatory bowel disease (i.e., Crohn's Disease). Please make sure that Dr. Puente's team knows that you take these medications and that you work with his team and the prescribing physician's team on how these medications should be handled before and around the time of surgery. If you have a history of cancer and are on a biologic or other type of medicine to treat your concurrent cancer, please make sure Dr. Puente's team knows this. These type of medicines (i.e., Tamoxifen) need to be held prior to surgery depending on the type of surgery. 5. Refrain from smoking for at least 2 weeks prior to your surgery and for at least 3 weeks after your surgery. Smoking impairs healing and can worsen scarring. This is a perfect time to give up the habit. Refrain from drinking any alcohol for at least 3-5 days before surgery. If you regularly drink any alcohol or have a history of any alcohol withdrawal problems, please tell someone on Dr. Cheema surgical team, so that preparations can be made. Alcohol withdrawal problems during your postoperative recovery can be life- threatening and required special precautions. 6. You should maximize your health before any surgery as this will help you heal and recover faster and with less risk of complications. This includes maintaining good nutrition and hydration prior to your surgery. Continuing or initiating an exercise regimen is also important for staying healthy. It is also important to keep any long goods drier medical conditions you have under good control, especially your sugar levels if you are diabetic and blood pressure if you have hypertension. Please get a good nights rest for several days prior to your surgery so you are rested and as prepared as you can be. 7. Avoid tanning or any skin topical treatments before your surgery. 8. You may be asked to participate in the Bios[employer] Repository or "BioBank". By giving your consent, we can collect both blood and tissue samples during your procedure. This does not involve the removal of any more tissue than what is clinically necessary for your treatment. Your participation allows us to study your cells to help understand your disease and possibly learn how to prevent and treat this disease in others. It is a crucial component of an [facility]- designated Cancer Center and essential to improving the success of cancer care for future patients. Please consider participating! The day before your surgery: 9. The night before your surgery, please shower and wash your hair. Men should generally shave then as well. If you have a gimenez or moustache, please ask Dr. Puente about grooming requirements. Some beards and moustaches can hinder your surgery. 10. Please do not eat or drink anything, including water, after midnight on the night prior to your surgery. This includes chewing gum or sucking on hard candy. Small sips of water with your necessary medicines are ok. 11. It is not necessary to bring any personal belongings to the hospital. All that you will need, including toiletry items, will be provided for you. Leave your valuables and jewelry at home. Please leave any rings or earrings at home. 12. Try and wear loose fitting clothing that fasten in the front or back to the hospital. Try to avoid clothing that you have to toe puller your head. 13. Please do not wear any facial or eye makeup to the hospital and avoid nail tamazight. 14. You may wear your glasses, but avoid contact lenses on the day of surgery. You may wear your dentures if you like. 15. Please bring your identification and insurance card with you to the hospital. The day of your surgery and during your recovery: 16. Dr. Puente will talk with you again prior to your surgery to answer any further questions and to re-discuss the treatment choices, the recommended surgical plan and the risks of the procedure. The operating room nurse liason will keep your loved ones apprised of how your surgery is progressing. Dr. Puente will discuss with your family if any major decisions or changes need to be made during your surgery. Generally, Dr. Puente or one of his partners involved in the surgery will discuss a summary with your family after the surgery. The most useful information is usually discussed at the postoperative follow up visit or while you are in the hospital if you remain an inpatient. The pathology results are generally available in 3-7 days. Please feel free to ask any of the nurses, Dr. Cheema surgical team and/or Dr. Puente any questions you or your family may have. 17. During your stay in the hospital, the nurse is usually the best source of ongoing information. The surgical team rounds and checks on you once to twice daily. Dr. Puente or his partners may also see you at separate times. If you have unanswered questions or concerns, Dr. Cheema surgical team can be paged by the nurse. 18. For patients that stay in the hospital after their surgery, deep breaths and sitting up in bed or in a chair can help minimize the chances of developing pneumonia. Sometimes a device called an incentive spirometer is given to you to help you to take and measure your deep breaths. Try and take a few deep breaths every TV commercia or every 10 minutes or so. Also, exercise your legs, including moving your toes, ankles, calves, knees, thighs and hips when you are in and out of bed. This will help enhance the bloodflow in your legs to help minimize the chances of forming a blood clot and/or dangerous pulmonary embolus. Try and wear your pneumatic compression devices (air filled squeezing device placed with Velcro around your legs) when you are in bed. 19. If you are having day surgery, please arrange for someone to take you home from the hospital. You will not be allowed to drive or leave alone. Also, arrange to have someone stay with you during the first 24 hours after surgery. 20. If you are having inpatient surgery, at the time of your discharge, you will be given instructions and training on how to take care of yourself. In some cases, a home health nurse will be assigned to visit you at home to help with your care and recovery. 21. You may be discharged with a suction drain to collect the tissue fluid from your wound. The discharging nurse will give you instructions on how to take care of the drain. In general please record the output of the drain every 8-12 hours so we can review the total output for 24-hour intervals. Generally the drain can be removed if it produces less than 20-30 ml in a 24 hours period, but it depends on your specific clinical situation and surgery. Gently clean around the drain entry site into the skin with hydrogen peroxide and place antibiotic ointment twice daily. 22. At home, keep your head and neck elevated while in bed. Usually 2-3 pillows suffice. This will help minimize the swelling and help healing. 23. Please get adequate rest once you are home, but do not lie in bed all day. Slowly increase your activities back to normal as your energy level and strength allows. During this time it is also important to get adequate nutrition , hydration, and not smoke or drink. 24. If you have sutures on your incision. Generally, clean your incision line with hydrogen peroxide and apply antibiotic ointment twice per day. Some antibiotic ointments can cause a rash. Please stop the ointment and inform us if this occurs. Try and keep your wounds dry. Patients with incisions closed with glue can take brief showers, but immediately dry the area once done. Do not use anitibiotic ointment if your incision is closed with glue as this dissolves the glue. If you have sutures, you will be instructed when and where to have them removed. This is usually between 5 days to 2 weeks postoperatively. If you are unsure of when to have the sutures removed, please call Dr. Cheema nurse. 25. Please avoid any direct trauma, irritation or stress/tension to your wounds for 7 days. After 3 weeks of good incisional healing, you can begin to gently massage your incision and use scar products such as mederma. These are generally available at any drugstore. Resuming your exercise regimen and heavy lifting is allowed about 3 weeks after your surgery. Please confirm this with a member of Dr. Cheema surgical team. Try to minimize sun exposure to your scars and wear sunscreen over the scars for at least 6 months after your surgery to prevent differential tanning of the scars. 26. After you are discharged, please call Dr. Cheema Office especially if you notice any of the following. Fever above 101.5 degrees Fahrenheit Increasing pain not controlled by your prescribed pain medicines Increasing redness, swelling or pus-like drainage from your incision Increased swelling in your leg or arm Concerning bleeding Troubles breathing Diarrhea or bloody stools Changes in the appearance of the surgical bed, like purplish color changes in the tissues Inability to maintain your nutrition and hydration through eating/drinking/tube feedings Changes in your mental status Strange reactions to any of your medicines Numbness or tingling in hands, feet or around your mouth/tongue 28. If you are having your total or remaining thyroid removed, you will probably be placed on a thyroid hormone replacement pill (i.e., synthroid, L- thyroxine). Most people take this in the early am with a glass of water. please avoid taking any other pills or food around the time you are taking synthroid for at least 30-45 minutes as this can affect the absorption fo the medication. This medicine's dosage level may need to be adjusted in 4-6 weeks after you start, please make an appointment with your primary care provider or museum curator to check your blood level so that they can fine tune your medicine dosage to the correct level. 29. After surgery you may be receiving call from the care Team to discuss results or answer questions, so please sampler pickup these calls and avoid call screening if they say blocked number or a number you don't recognize. AGAIN, YOU MOST LIKELY WILL BE ASKED TO PARTICIPATE IN THE BIOSPECIMEN REPOSITORY FOR THE [facility]. Please talk to our representatives and strongly consider participating. This study provides us an opportunity to learn about your disease and potential preventative and treatment measures. This is an important initiative to helping us minimize the burden of tumors and cancers in the future. There is always someone on-call 24 hours a day for 365 days a year to answer your questions and give you advice ([phone]) We strive to make your health and recovery our top priority. If you have specific questions regarding your surgery preparations or If anything during your treatment is of concern to you, we welcome your feedback. Thank you for entrusting your care with us. SEYMOUR Triplett Dr. Nurse [phone] Citlalli Shepherd RN H&N Navigator [phone] Destiney Louie RN H&N Navigator [phone] Fatoumata Rivera RN H&N Navigator [phone] NESS LAW INSTRUCTOR in this encounter Progress Notes * Sony Puente MD - 08/08/2018 11:00 AM BUSINESS LAW INSTRUCTOR Date of Service: 08/08/2018 Subjective: Connie Stapleton is a 38 y.o. female. History of Present IllnessCharity Patsy Stapleton is referred by Dr. Branden Garza for evaluation of thyroid nodules. She has noticed that her thyroid has been getting bigger. This has been drained twice in the [facility]. This was last drained in March 2017. Her neck will be flat for a few months, then swelling will return. Has had some ant neck tightness and is noticing mass more and more. US T done today. Labs ok. She denies a history of a dysphagia, neck/thyroid mass, breathing troubles, voice changes, neck pain, rapid mass growth. Connie has received previous treatment and workup including: TSH: Lab Results Component Value Date TSH 0.730 08/08/2018 09/14/17 TSH: 0.58 Thyroxine T4 9.9 US T: Repeat US performed today 08/08/18. Read pending. 09/14/17 US thyroid (OSH): IMPRESSION: Partially cystic mass with a solid nodule seen in the left thyroid lobe with internal solid component. Cyst measures: 4.9 x 1.9 x 2.9 cm FNA: Has had FNA x2 of the right thyroid gland (once in [facility]). 11/27/13 FNA Right lobe thyroid: Consistent with benign thyroid nodule with cystic degeneration.OSH Thyroid scan: 10/30/13 Thyroid Uptake scan: IMPRESSION: 1. Mild hyperthyroidism. 2. Cold nodule in the inferior aspect of the right lobe, could be reltaed to the large cystic component. Vitamin D: Vitamin D(25-OH)Total Date Value Ref Range Status 08/08/2018 57.3 30 - 80 NG/ML Final Family history of thyroid malignancy: No -- paternal aunt and sister with goiter History of [place]'s Dz (hamartoma syndrome), FAP - Familial Adenomatous Polyposis, or MEN syndrome: No History of neck radiation exposure: No, Manager Storage: Yes, not sure of name. Was seen in [place]. She denies a history of KATLYN, chest pain, KS, CVA, Sz, HAYES. She does have a history of gestational DM. She can walk up two flights of stairs. 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 She lives in [place]. 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 No pertinent surgical history. She has had bilateral breast lumpectomy -- no cancer. Other medical history: History reviewed. No pertinent past medical history. Review of Systems Constitutional: Negative. HENT: Negative. Eyes: Negative. Respiratory: Negative. Cardiovascular: Negative. Gastrointestinal: Negative. Endocrine: Negative. Genitourinary: Negative. Musculoskeletal: Negative. Skin: Negative. Allergic/Immunologic: Negative. Neurological: Negative. Hematological: Negative. Psychiatric/Behavioral: Negative. Objective: No current outpatient prescriptions on file. Vitals: 08/08/18 1113 BP: 107/72 Pulse: 82 Weight: 51.4 kg (113 lb 6.4 oz) Height: 160 cm (63") Body mass index is 20.09 kg/m. Physical Exam Alert, NAD, thin Head: Normocephalic/atraumatic Thin Ears: AU Auricles without lesions, EAC clear AU, hearing grossly intact AU Eyes: EOMs equal OU, PERRL, vision grossly intact OU, conjunctiva clear Nose: Externally without lesions, septum midline, no visible lesions via anterior rhinoscopy OC/OP: Teeth in good repair, tongue movement and sensation intact, no mass or mucosal lesions in OC or OP visibly or palpably, tonsils symmetric Larynx: Voice normal without stridor or sturgor, normal external landmarks Neck: No neck mass or adenopathy, visible and palpable right thyroid nodule, no cutaneous changes No fixation to skin and normal thyroid bed mobility fabrication and assembly supervisor: Facial sensation and movement intact bilaterally, shoulder shrug normal bilaterally After obtaining verbal consent and due to strong gag reflex/neck mass the nose was sprayed with 4% lidocaine and neosynephrine. I looked with the flexible fiberoptic laryngoscope. The nasal anatomy is normal without mass or mucosal lesion. The laryngoscope was then passed into the nasopharynx, which showed normal eustachian tube openings. The fossae of Rosenmller were clear with normal elevation of the soft palate and were without any evidence of masses or lesions. Passing the flexible scope into the oropharynx and hypopharynx revealed that the base of tongue and vallecula were without lesions. The piriform sinuses were without lesions or any pooling of secretions or visible aspiration. The supraglottic structures are without lesions, including the epiglottis and aryepiglottic folds. The false vocal cords and true vocal cords were without lesions. The TVC were symmetric and mobile bilaterally, without mucosal lesions. The visualized part of the subglottis is clear. There was no extrinsic mass effects in the pharynx. The flexible fiberoptic scope was then removed. The patient tolerated the procedure well without complications. Assessment and Plan: Connie Stapleton has a multinodular goiter with large right thyroid cyst and is euthyroid. Mild compression symptoms and ext growth.We discussed the risks and merits of each Tx approach including serial exams, serial US, FNA, Molecular testing, Thyroid Scan and surgery. She desires thyrodiectomy for defintivie dx and tx. Connie Stapleton wishes to proceed with primary surgery. This will include right hemithyroidectomy. We went through the surgical plan and the risks to include but not limited to VCP, hypoparathyroidism, need for thyroid hormone replacement, chyle leak, recurrence of disease, need for more surgery or other therapy Biospecimen Repository [facility] clinic eval Schedule rh, CHECK us CXR MYCHART US T CHECK NESS LAW INSTRUCTOR in this encounter Plan of Treatment Not on fileas of this encounter Visit Diagnoses Diagnosis Neck tightness Unspecified musculoskeletal disorders and symptoms referable to neck Thyroid mass Unspecified disorder of thyroid in this encounter
[2018-10-23 15:45] VITALS: BP 101/70
[2018-10-23 16:25] VITALS: BP 101/70
== END 2018-10-23 16:25 | disposition home or self-care (01) ==
LOC: SDC 11:20
PROVIDERS: ATTEND Obstetrics & Gynecology
DX: N84.0 Polyp of corpus uteri (principal)

== ENCOUNTER 2018-11-08 06:20 | Outpatient (CLI) | payer BC ==
[~2018-11-08] VITALS: Ht 160 cm; Wt 54.0 kg
[~2018-11-08 06:20] MED LIST changes: +IBUP-1780 PO; +OXYC-199 PO
== END 2018-11-08 12:50 | disposition home or self-care (01) ==
LOC: PREOP 06:20
PROVIDERS: ATTEND Internal Medicine
DX: Z01.818 Encounter for other preprocedural examination (principal)

== ENCOUNTER 2018-11-15 06:55 | Day surgery (SDC) | payer BC ==
--- NOTE | 2018-11-04 17:28 | HISTORY AND PHYSICAL ---
DATE OF SERVICE: COLONOSCOPY HISTORY AND PHYSICAL HISTORY OF PRESENT ILLNESS: The patient is a 38-year-old Spanish female, referred by Dr. Hernandez for diagnostic colonoscopy. The patient reports for the past several months she has had painful defecation that is predominantly during her period that is most significant and goes on for a week, starting around the initiation of her cycle. She does not believe she has noted any blood in the stool and denies constipation or diarrhea. She has had some increase in fatigue, but denies night sweats, chills, fever or pain other than around the rectum and left lower quadrant of the abdomen. FAMILY HISTORY: Mother is living at the age of 81 with no health problems. Father in his 70s secondary to chronic obstructive pulmonary disease from longstanding tobaccoism. She has 2 children, 9 and 6, who are well. She has no history of tobacco or any significant alcohol consumption history. PAST SURGICAL HISTORY: She has had bilateral breast lumpectomies for benign reasons. She underwent a D and C for a uterine mass, noted to be a functional polyp without evidence for malignancy last week. At that time, electronic medical record was reviewed. Her CBC revealed a hemoglobin of 12.5 with an MCV of 91, platelet count 255,000 and a white count of 5.5 thousand with a normal differential. She had a fasting sugar via glucometer of 100. TSH of 0.51 and a free T4 of 1.18. test was negative. PAST MEDICAL HISTORY: She reports no other significant past medical history. MEDICATIONS: Is on no medication. ALLERGIES: Reports no known drug allergies. SOCIAL HISTORY: She has 2 living children, 9 and 6 with no past smoking history and no significant alcohol intake history. REVIEW OF SYSTEMS: CONSTITUTIONAL: She denies any night sweats, chills or fever. As noted above, has had some fatigue. CARDIOVASCULAR: She denies chest pain, shortness of breath, orthopnea, PND or pedal edema. PULMONARY: She denies any past history of cough or wheezing. GASTROINESTINAL: As noted above. GENITOURINARY: She denies urinary discharge, frequency, burning, flank pain or hematuria. PHYSICAL EXAMINATION: GENERAL: Reveals a well-appearing Spanish white female, slightly anxious, but in no acute distress. VITAL SIGNS: Weight was 116.6 pounds. She is roughly 5 feet tall. Blood pressure 102/60, heart rate of 76 and regular. HEENT: Unremarkable. There is no evidence for pallor. Sclerae are nonicteric. Oral cavity reveals a Mallampati class 2 to 3 configuration. No erythema is noted. NECK: Revealed no JVD, adenopathy or bruits. CHEST: Clear to auscultation. CARDIOVASCULAR: Reveals a regular rate and rhythm without murmur, S3 or S4. ABDOMEN: Soft, supple without mass, organomegaly or tenderness. Bowel sounds are positive. No bruits are noted. EXTREMITIES: Reveal no cyanosis, clubbing or edema. ASSESSMENT AND PLAN: The patient is set up for diagnostic colonoscopy on 11/15/2018. Prep instructions with Suprep kit were given and questions were answered. In today's evaluation and review of electronic medical record, 40 minutes of patient care time was spent by myself and another 15 minutes of staff time going over prep instructions and setting up the procedure and answering questions. I thank you for the referral of this pleasant lady. Sincerely, Job ID: [id number] DocumentID: [id number] Dictated Date: 10/30/2018 17:26:38 Explosives Operator Date: 10/30/2018 18:20:58 Dictated By: BREE BENAVIDES MD
[~2018-11-15] VITALS: Ht 160 cm; Wt 54.0 kg
[~2018-11-15 06:55] MED LIST changes: +LACTATED RINGERS 1,000 ML IV ONE
--- OUTSIDE RECORDS SUMMARY | 2018-11-15 06:59 | XMS REPORT | Encounter Summary ---
Author Author [facility] Organization [facility] Address Unknown Phone Unavailable Care Team Providers Care Dress Designer Name Role Phone No Pcp, Na PCP Unavailable Encounter Details Care Team Description Date Type Department Olvin Reina MD [address] [place] [address] 09/18/2018 Anesthesia [place] Operating Room Event [address] [place] [address] Anesthesia Record Responsible Anesthesiologist Anesthesia Start Time [...]
--- OUTSIDE RECORDS SUMMARY | 2018-11-15 06:59 | XMS REPORT | Clinical Summary ---
Author Author [facility] Organization [facility] Address Unknown Phone Unavailable Care Team Providers Care Headrig Sawyer Name Role Phone No Pcp, Na PCP Unavailable Source Comments Some departments are not documenting in the electronic medical record. If you do not see the information that you expected, contact Release of Information in the Health Information Management department at [phone] for further assistance in locating additional records.[facility] Allergies No Known Allergies Medications End [...] Sony Puente MD Surgery 08/15/2018 Telephone Otolaryngology Shannon Waddell APRN 08/08/2018 Anesthesia Event from Last 3 Months Family History Medical [...] Taken Vital Sign Reading 08/08/2018 1:36 PM OXYACETYLENE TORCH OPERATOR Blood Pressure 111/72 08/08/2018 1:36 PM OXYACETYLENE TORCH OPERATOR Pulse 91 08/08/2018 1:36 PM OXYACETYLENE TORCH OPERATOR Temperature 36.6 C (97.9 F) - Respiratory Rate - 08/08/2018 1:36 PM OXYACETYLENE TORCH OPERATOR Oxygen Saturation 100% - Inhaled Oxygen - Concentration 08/08/2018 1:36 PM OXYACETYLENE TORCH OPERATOR Weight 51.3 kg (113 lb) 08/08/2018 1:36 PM OXYACETYLENE TORCH OPERATOR Height 160 cm (5' 3") 08/08/2018 1:36 PM OXYACETYLENE TORCH OPERATOR Body Mass Index 20.02 Plan of Treatment Health Maintenance Due Date Last Done Comments PHYSICAL (COMPREHENSIVE) 1985 EXAM HIV SCREENING 1993 DTAP/TDAP VACCINES ( - 1996 Tdap) CERVICAL CANCER SCREENING 2008 BREAST CANCER SCREENING 2018 INFLUENZA VACCINE 05/01/2018 Results Not on filefrom Last 3 Months Insurance Payer Benefit Subscriber ID Type Phone Address Plan / Group [facility] xxxxxxxxxxxx PPO [facility] [employer] (Home) [place] [address] Advance Directives Patient has advance care planning documents on file. For more information, please contact: [facility] [address] [place] [address]
--- OUTSIDE RECORDS SUMMARY | 2018-11-15 06:59 | XMS REPORT | Encounter Summary ---
Author Author [facility] Organization [facility] Address Unknown Phone Unavailable Care Team Providers Care Wire Taper Name Role Phone No Pcp, Na PCP Unavailable Reason for Visit * Reason Comments Surgery Encounter Details Care Team Description Date Type Department Sony Puente MD [address] [facility] [address] [place] [address] Surgery 08/15/2018 Telephone [facility] Orth[facility] and [facility] Level [address]C [address] [place] [address] Social History Date Tobacco Use [...] Alicia Tomlin RN - 08/15/2018 8:19 AM SEWER LVM requesting patient call RN back regarding the option to move surgery to . Will follow-up with patient. R in this encounter Plan of Treatment Not on fileas of this encounter Visit Diagnoses Not on filein this encounter
--- OUTSIDE RECORDS SUMMARY | 2018-11-15 06:59 | XMS REPORT | Continuity of Care Document ---
Author Author [facility] Organization [facility] Address Unknown Phone Unavailable Allergies Active Description Code Type Severity Reaction Onset Reported/Identified Relationship to Patient Clinical Status Yes No Known Drug Allergies [id number] Drug Allergy Unknown N/A 06/07/2009 Medications There [...] ANDERSON MD Ot 240.9 GOITER NOS 08/14/2016 GNII ANDERSON MD Ot V76.12 OTH SCREEN MAMMO-MALIGN NEOPLASM OF SAVANNA 08/14/2016 Ot 241.0 NONTOX UNINODULAR GOITER 08/14/2016 Ot 389.15 SENSORINEURAL HEARING LOSS, UNILATERAL 08/14/2016 MADDY DYE MD Ot 241.0 NONTOX UNINODULAR GOITER 08/14/2016 GINI ANDERSON MD Ot 611.72 LUMP OR MASS IN BREAST 08/14/2016 MADDY DYE MD Ot E04.1 NONTOXIC SINGLE THYROID NODULE 08/15/2016 GUILLERMINA MERINO IS ANALYST Ot E04.1 NONTOXIC SINGLE THYROID NODULE 08/15/2016 GUILLERMINA MERINO IS ANALYST Ot E04.1 NONTOXIC SINGLE THYROID NODULE 08/28/2016 GUILLERMINA MERINO IS ANALYST Ot E04.1 NONTOXIC SINGLE THYROID NODULE 09/27/2017 HARDIK ELIAS, MADDY Bazzi Ot E04.1 NONTOXIC SINGLE THYROID NODULE 10/21/2018 GINI ANDERSON MD, Ot D64.9 ANEMIA, UNSPECIFIED 10/21/2018 GINI ANDERSON MD, Ot R19.09 OTHER INTRA-ABDOMINAL AND PELVIC SWELLIN 10/21/2018 GINI ANDERSON MD, Ot Z01.812 ENCOUNTER FOR PREPROCEDURAL LABORATORY E 10/21/2018 GINI ANDERSON MD, Ot Z11.2 ENCOUNTER FOR SCREENING FOR OTHER BACTER 10/23/2018 GINI ANDERSON MD, Ot D64.9 ANEMIA, UNSPECIFIED 10/23/2018 GINI ANDERSON MD, Ot R19.09 OTHER INTRA-ABDOMINAL AND PELVIC SWELLIN 10/23/2018 GINI ANDERSON MD, Ot Z01.812 ENCOUNTER FOR PREPROCEDURAL LABORATORY E 10/23/2018 GINI ANDERSON MD, Ot Z11.2 ENCOUNTER FOR SCREENING FOR OTHER BACTER 10/23/2018 GINI ANDERSON MD, Ot N84.0 POLYP OF CORPUS UTERI 10/25/2018 GINI ANDERSON MD, Ot N84.0 POLYP OF CORPUS UTERI 10/28/2018 GINI ANDERSON MD, Ot N84.0 POLYP OF CORPUS UTERI 10/30/2018 GINI ANDERSON MD, Ot N84.0 POLYP OF CORPUS UTERI 11/08/2018 KENNEDY ELIAS, BREE Bolivar Ot Z01.818 ENCOUNTER FOR OTHER PREPROCEDURAL EXAMIN 11/11/2018 BREE BENAVIDES MD Ot Z01.818 ENCOUNTER FOR OTHER PREPROCEDURAL EXAMIN Procedures Code Description Performed By Performed On [...] human chorionic gonadotropin (hCG) measurement NEGATIVE NEGATIVE Methicillin resistant Staphylococcus aureus (MRSA) screening culture - 11:20 Methicillin resistant Staphylococcus aureus (MRSA) screening culture NEG NRG Encounters ACCT No. Visit Date/Time Discharge Status Pt. Type Provider Facility Loc./Unit Complaint [id number] 11/08/2018 06:20:00 11/08/2018 12:50:00 DIS Outpatient BREE BENAVIDES MD [facility] PREOP COLONOSCOPY [id number] 10/23/2018 11:20:00 10/23/2018 16:25:00 DIS Outpatient GINI ANDERSON MD [facility] SDC PELVIC MASS [id number] 10/21/2018 11:00:00 10/21/2018 11:23:00 DIS Outpatient GINI ANDERSON MD [facility] PREOP HYSTEROSCOPY WITH DILITATION AND CURETTAGE [id number] 10/16/2018 12:00:00 10/16/2018 23:59:59 CLS Preadmit GINI ANDERSON MD [facility] RAD ROUTINE [id number] 09/14/2017 09:47:00 09/14/2017 23:59:59 CLS Outpatient MADDY DYE MD [facility] RAD LARGE RIGHT THYROID NODULE [id number] 08/14/2016 10:11:00 08/14/2016 23:59:59 CLS Outpatient GUILLERMINA MERINO APRN [facility] RAD THYROID CYST RT THYROID NODULE [id number] 07/30/2015 10:38:00 07/30/2015 23:59:59 CLS Outpatient MADDY DYE MD [facility] RAD THYROID NODULES [id number] 11/09/2014 14:03:00 11/09/2014 23:59:59 CLS Outpatient GINI ANDERSON MD [facility] RAD LEFT BREAST 1 1/2 CM NODULE 12 OCLOCK POSITION [id number] 06/16/2014 14:53:00 06/16/2014 23:59:59 CLS Outpatient MADDY DYE MD [facility] RAD RT THYROID NODULE [id number] 10/30/2013 10:48:00 10/30/2013 23:59:59 CLS Outpatient MONICA ELIAS, GINI Cop[place] [facility] RAD BASELINE,GOITER RT SIDE [id number] 11/15/2018 08:00:00 PEN Preadmit KENNEDY ELIAS, BREE Bolivar [facility] ENDO LLQ ABD PAIN/RECTAL PAIN [id number] 11/27/2013 10:22:00 Document Registration [id number] 04/11/2012 07:43:00 Document Registration [id number] 06/07/2009 07:33:00 Document Registration [email or web address] 11/09/2014 14:03:38 ACT Document Registration
[2018-11-15] MEDS ORDERED: LACTATED RINGERS 1,000 ML IV STA (07:25)
[2018-11-15] MEDS ORDERED: LIDOCAINE JELLY 2% 6 ML SYRINGE MM PRN (07:30)
[2018-11-15 07:31] VITALS: BP 118/66
--- NOTE | 2018-11-15 08:09 | Pre-Op Note & Conscious Sedat ---
Pre-Operative Progress Note H&P Reviewed The H&P was reviewed, patient examined and no changes noted. Date H&P Reviewed: Nov 15, 2018 Time H&P Reviewed: 08:09 Conscious Sedation Pre-Proced ASA Score 2 For ASA 3 and 4: Consider anesthesia and medical clearance. Also, for patients with a history of failed moderate sedation consider anesthesia. Airway Lungs Heart ASA score ASA 1: a normal healthy patient ASA 2: a patient with a mild systemic disease (mid diabetes, controlled hypertension, obesity ASA 3: a patient with a severe systemic disease that limits activity (angina , COPD, prior Myocardial infarction) ASA 4: a patient with an incapacitating disease that is a constant threat to life (CHF, renal failure) ASA 5: a moribund patient not expected to survive 24 hrs. (ruptured aneurysm) ASA 6: a declared brain- patient whose organs are being harvested. For emergent operations, add the letter E after the classification Mallampati Classification Grade 2 Sedation Plan Analgesia, Amnesia, Plan communicated to team members, Discussed options with patient/fam, Discussed risks with patient/fam The patient is an appropriate candidate to undergo the planned procedure, sedation, and anesthesia. The patient immediately re-assessed prior to indication. BREE BENAVIDES MD Nov 15, 2018 08:09
[2018-11-15] MEDS ORDERED: proPOfol 200 MG/20 ML (DIPRIVAN) VIAL IV ONE ×2 (08:15→09:00)
[2018-11-15] MEDS ORDERED: LIDOCAINE PF 2% 5 ML (XYLOCAINE) VIAL ONE (08:15)
[2018-11-15] MEDS ORDERED: MIDAZOLAM 2 MG/2 ML (VERSED) VIAL ONE (08:37)
[2018-11-15 09:35] VITALS: BP 103/71
[2018-11-15 10:05] VITALS: BP 113/73
[2018-11-15 10:30] VITALS: BP 113/73
--- NOTE | 2018-11-15 13:15 | Anesthesia-General Post-Op ---
MAC Patient Condition Mental Status/LOC: Same as Preop Cardiovascular: Satisfactory Nausea/Vomiting: Absent Respiratory: Satisfactory Pain: Controlled Complications: Absent Post Op Complications Complications None Follow Up Care/Instructions Patient Instructions None needed. Anesthesiology Discharge Order Discharge Order Patient is doing well, no complaints, stable vital signs, no apparent adverse anesthesia problems. No complications reported per nursing. VERNEA HADDAD CRNA Nov 15, 2018 13:15
--- NOTE | 2018-11-15 18:06 | OPERATIVE REPORT ---
DATE OF SERVICE: 11/15/2018 COLONOSCOPY SUMMARY INDICATION FOR THE PROCEDURE: Left lower quadrant abdominal pain and rectal pain predominantly around the time of periods. DESCRIPTION OF PROCEDURE: The patient was placed in the left lateral decubitus position. Prior to undergoing colonoscopy, digital rectal evaluation was performed. Anal sphincter tone was normal and the perianal reflex was intact. No abnormalities on digital inspection of the anal canal or distal rectal vault. The colonoscope was then inserted into the rectum under direct visualization and advanced to the cecum. The cecum was identified by identification of the ileocecal valve and cecal strap. Photographic documentation was obtained. The colonic prep was good. FINDINGS: There was no evidence for internal or external hemorrhoids and the rectum, sigmoid colon, descending colon, splenic flexure, transverse colon, hepatic flexure, ascending colon and cecum were unremarkable with no evidence for diverticular disease, inflammatory change or neoplasia. A biopsy was obtained from the rectum to rule out any evidence for microscopic colitis. ASSESSMENT: Normal colonoscopy to the cecum. The patient was reassured by today's findings. I thank you for the referral of this pleasant lady. Job ID: [id number] DocumentID: [id number] Dictated Date: 11/15/2018 10:24:50 Ecommerce Manager Date: 11/15/2018 18:06:46 Dictated By: BREE BENAVIDES MD
== END 2018-11-15 10:30 | disposition home or self-care (01) ==
LOC: ENDO 06:55
PROVIDERS: ATTEND Internal Medicine
DX: R10.32 Left lower quadrant pain (principal); K62.89 Other specified diseases of anus and rectum
CPT/HCPCS: 84703